=== PATIENT | female | born 1990 | race Caucasian/White ===

== ENCOUNTER 2019-02-19 17:44 | Emergency (ER) | payer SELFPAY ==
[~2019-02-19] VITALS: Ht 160 cm; Wt 74.8 kg
[2019-02-19 17:58] VITALS: BP 131/76; Ht 160 cm; Wt 74.8 kg
== END 2019-02-19 19:06 | disposition home or self-care (01) ==
LOC: ED 17:44
DX: O23.41 Unspecified infection of urinary tract in pregnancy, first trimester (principal); Z3A.00 Weeks of gestation of pregnancy not specified